=== PATIENT | male | born 2000 | race African-American/Black ===

== ENCOUNTER 2024-05-28 08:55 | Emergency (ER) | payer SELFPAY ==
[2024-05-28 09:02] VITALS: BP 126/78; PULSE 63; RESP 18; TEMP 97.9; BMI 22.9
[2024-05-28] MEDS ORDERED: ACETAMINOPHEN INJECTION 100 ML ONE (09:45)
[2024-05-28] MEDS: SODIUM CHLORIDE 1,000 ML IV STA (09:49)
[2024-05-28] MEDS: ACETAMINOPHEN 1000 MG/100 ML BAG IVPB ONE (09:49)
[2024-05-28] MEDS ORDERED: KETOROLAC TROMETHAMINE 30 MG/1 ML VIAL ONE (09:51)
[2024-05-28 09:56] LABS: BASO % 0.5 % (0-2.0); EOS % 0.3 % (0-4.5); HEMATOCRIT 37.4 % (35.4-49); HEMOGLOBIN 12.9 GM/dL (11.7-16.9); LYMPH % 8.2 % (8-40); MCH 29.2 pg (25.7-33.7); MCHC 34.4 g/dl (32.0-35.9); MEAN CELL VOLUME 84.9 fl (80-96); MEAN PLT VOLUME 8.1 fl (7.5-11.1); MONO % 6.2 % (3.8-10.2); NEUT % 84.8 % (42.8-82.8); PLATELET COUNT 501 10^3/uL (134-434); RBC 4.41 M/mm3 (4.00-5.60); RDW 13.8 % (11.9-15.9); RETICULOCYTES 3.82 % (0.5-1.5); WHITE BLOOD COUNT 13.9 K/mm3 (4.0-10.0)
[2024-05-28] MEDS: KETOROLAC TROMETHAMINE 30 MG/1 ML VIAL IVPUSH ONE (10:04)
[2024-05-28 10:17] LABS: ALBUMIN 4.6 g/dl (3.4-5.0); BLOOD UREA NITROGEN 9.7 mg/dL (7-18); CALCIUM 10.4 mg/dL (8.5-10.1)
[2024-05-28 10:21] LABS: CREATININE 0.9 mg/dL (0.55-1.3)
[2024-05-28 10:22] LABS: BILIRUBIN,TOTAL 2.6 mg/dL (0.2-1); TOT PROT 8.2 g/dl (6.4-8.2)
[2024-05-28 10:32] LABS: EPI CELLS 4 /uL (0-25.1); HYALINE CASTS 0 /uL (0-3.1); PH,URINE 7.5 (5.0-8.0); URINE APPEARANCE CLEAR; URINE BACTERIA 5 /uL (0-1359); URINE BILIRUBIN NEGATIVE (NEGATIVE); URINE COLOR YELLOW; URINE GLUCOSE (UA) NEGATIVE (NEGATIVE); URINE KETONE NEGATIVE (NEGATIVE); URINE LEUK ESTERASE NEGATIVE (NEGATIVE); URINE NITRITE NEGATIVE (NEGATIVE); URINE PROTEIN 1+ (NEGATIVE); URINE RBC 13 /uL (0-23.9); URINE WBC 4 /uL (0-25.8)
[2024-05-28 13:01] LABS: HIV INTERPRETATION NEGATIVE (NEGATIVE)
== END 2024-05-28 11:40 | disposition home or self-care (01) ==
LOC: JER 08:55
PROC: 3E033NZ Introduction of Analgesics, Hypnotics, Sedatives into Peripheral Vein, Percutaneous Approach (ICD-10-PCS; principal; 2024-05-28)
PROC: 3E0333Z Introduction of Anti-inflammatory into Peripheral Vein, Percutaneous Approach (ICD-10-PCS; 2024-05-28)
PROC: 3E0337Z Introduction of Electrolytic and Water Balance Substance into Peripheral Vein, Percutaneous Approach (ICD-10-PCS; 2024-05-28)
DX: M79.662 Pain in left lower leg (principal)
CPT/HCPCS: 36415; 73552-TC-LT-FY; 73590-TC-LT-FY; 80053; 81003; 85025; 85045; 86803; 87086; 87389; 99284-25; J0131